=== PATIENT | female | born 1965 | race Caucasian/White ===

== ENCOUNTER 2020-03-25 07:18 | Outpatient (REF) | payer OTHER, SELFPAY ==
--- NOTE | 2020-03-25 07:21 | CT_ITS ---
EXAMINATION: CT HEAD WITHOUT CONTRAST CLINICAL INFORMATION: Amnesia COMPARISON: None. TECHNIQUE: Contiguous axial imaging was performed from the skull base to vertex without intravenous contrast. This CT examination was performed using dose optimization techniques as appropriate, variously including the following: * Automated exposure control * Adjustment of mA and/or kV according to patient size (this includes techniques or standardized protocols for targeted exams where dose is matched to indication/reason for exam; i.e. extremities or head) Use of iterative reconstruction technique DLP: 738 mGy-cm. FINDINGS: There is no evidence of acute intracranial hemorrhage or territorial infarction. No abnormal mass effect or midline shift is seen. Arellano to white matter differentiation is well preserved. No extra-axial fluid collections are identified. No hydrocephalus. No significant volume loss. There is no abnormal attenuation within the brain parenchyma. The osseous structures and soft tissues are normal. The mastoid air cells and visualized portions of the paranasal sinuses are well aerated. CT/CT head/brain wo con IMPRESSION: No acute intracranial pathology.
== END 2020-03-25 07:19 | disposition home or self-care (01) ==
LOC: HO.CT 07:18
PROVIDERS: PCP Internal Medicine; Visit Provider Internal Medicine
DX: R41.3 Other amnesia (principal)
CPT/HCPCS: 70450

== ENCOUNTER 2024-08-02 11:57 | Outpatient (AMB) | payer MEDICARE, MEDICAID, SELFPAY ==
--- NOTE | 2024-08-02 12:02 | AM.OFFWIN_ITS ---
Intake Vital Signs 08/02/24 12:03 Height 5 ft 1 in Weight 134 lb BMI 25.3 BP 116/66 Blood Pressure Location Lt brachial Position Sitting Respiration 15 Pulse 86 Pulse Source Pulse Oximeter Temp 98.1 F Temp Source Oral Pulse Oximetry (%) 100 Oxygen Delivery Method Room Air Intake Visit Reasons: Medication refill Intake Note: Pt is here today request refill for her rosuvastatin 5mg til she est care with PCP Allergies No Known Allergies Allergy (Verified 08/02/24 12:34) Medication List - Last Reconciled 08/02/24 by SHAD Garcia-WILFREDO acetaminophen ER (Tylenol Arthritis Pain) 650 mg PO Q12H calcium carbonate-vitamin D3 600 mg-5 mcg (200 unit) (Calcium 600 + D(3)) caps PO multivitamin 1 tab PO DAILY rosuvastatin 5 mg PO DAILY HPI HPI Comments History of Present Illness Details History - The patient is a 58-year-old female pr esenting with a need for medication refill due to a change between primary care providers. - She is currently taking rosuvastatin 5 mg every evening for hyperlipidemia without any reported side effects and is running low. - The patient has recently moved from [facility] to [place] and is temporarily residing in [place]. - She mentioned using [facility] and previously [facility] for her prescriptions but has not yet established a local pharmacy or seen a new primary care provider in the area. - Additionally, the patient takes folic acid, which she started based on prior recommendation and currently obtains over the counter. She has brought her medication bottle, 90 day supply written 04/2024. Physical Exam General: Awake, alert. No apparent distress Eyes: Sclera and conjunctiva clear bilaterally Speaking in full sentences Mood and affect appropriate Discussion Notes I discussed with the patient the need to refill her rosuvastatin prescription as she is running low on her current supply and is in transition between primary care providers. We reviewed the current arrangement of sending an electronic prescription to [facility] on [facility] in [place] with a paper copy provided to her as a backup. I explained that if she encounters any issues with insurance at [facility], she has the option to send the prescription to [facility]. I also advised that the prescription would cover a six-month supply to allow for continuity until she establishes care with a new primary provider. [facility]. Assessment and Plan 1. Hyperlipidemia: Continued management of hyperlipidemia with rosuvastatin 5 mg daily. Prescription refilled electronically with a backup paper copy for flexibility with pharmacy choice due to recent relocation. The six-month refill accounts for her transition period until she establishes care with a primary care provider. Patient Instructions - Take rosuvastatin 5 mg as prescribed, one tablet every evening. - Collect your prescription from the [facility] on [facility]. If there are any insurance issues, consider sending the prescription to [facility]. - Follow up with a new primary care prov ider as soon as possible to manage ongoing health needs. - Continue using folic acid as per your past regimen. Consent Patient was informed and verbally consented to the use of an ambient scribe for clinic note documentation during this visit. Total time spent caring for the patient today was [] minutes. This includes time spent before the visit reviewing the chart, time spent during the visit, and time spent after the visit on documentation, reviewing laboratory results, diagnostic imaging, medications, performing a medically necessary evaluation, counseling on diagnoses, care coordination, ordering appropriate tests, ordering appropriate medications, review of tests performed by other providers, reporting test results with the patient, communication with other healthcare providers. [facility] Medical History (Updated 08/02/24 @ 12:45 [facility] ADHD Anxiety and depression GERD (gastroesophageal reflux disease) Insomnia Osteoarthritis of foot Rheumatoid arthritis Surgical History (Updated 08/25/20 @ 09:13 by Maverick Deleon MD) History of bilateral breast reduction surgery History of bladder surgery History of elbow surgery History of hysterectomy Family History (Updated 04/22/20 @ 09:51 by Milagros Mcgrath) Father No problems noted. Mother No problems noted. Brother Myocardial infarction Social History (Updated 08/25/20 @ 09:08 by Magali Segovia CMA) Alcohol intake: current Alcohol intake frequency: holidays/special occasions only Physical Exam Vital Signs: Last Vital Signs Temp 98.1 F 08/02/24 12:03 Pulse 86 08/02/24 12:03 Resp 15 08/02/24 12:03 BP 116/66 08/02/24 12:03 Pulse Ox 100 08/02/24 12:03 Oxygen Delivery Method Room Air 08/02/24 12:03 BMI result Body Mass Index 25.3 Assessment & Plan Assessment & Plan (1) Hyperlipidemia: Code(s): E78.5 - Hyperlipidemia, unspecified Qualifiers: Hyperlipidemia type: mixed hyperlipidemia Qualified Code(s): E78.2 - Mixed hyperlipidemia Plan: . (2) Encounter for medication refill: Code(s): Z76.0 - Encounter for issue of repeat prescription Plan . Medications: New rosuvastatin 5 mg PO DAILY 90 tabs 1RF rosuvastatin 5 mg PO DAILY 90 tabs 1RF Patient Instructions: [address] [address] Patient Instructions - Take rosuvastatin 5 mg as prescribed, one tablet every evening. - Collect your prescription from the [facility] on [facility]. If there are any insurance issues, consider sending the prescription to [facility]. - Follow up with a new primary care provider as soon as possible to manage ongoing health needs. - Continue using folic acid as per your past regimen. Coding Level of Care Code Est Pt Level 3 (36003) Diagnoses Mixed hyperlipidemia E78.2 Hyperlipidemia type: mixed hyperlipidemia Encounter for medication refill Z76.0
[2024-08-02 12:03] VITALS: BP 116/66; PULSE 86; RESP 15; TEMP 36.7; O2SAT 100; BMI 25.3
== END 2024-08-02 12:54 | disposition home or self-care (01) ==
LOC: HO.HMCWIC 11:57
PROVIDERS: Visit Provider Nurse Practitioner Family
DX: E78.2 Mixed hyperlipidemia (principal); Z76.0 Encounter for issue of repeat prescription

== ENCOUNTER → 2024-08-02 11:57 | Outpatient (BNVA) | payer MEDICARE, MEDICAID, SELFPAY | PROVIDERS: Visit Provider Nurse Practitioner Family | DX: E78.2 Mixed hyperlipidemia (principal); Z76.0 Encounter for issue of repeat prescription | CPT/HCPCS: 99212 ==

== ENCOUNTER 2025-01-30 13:30 | Outpatient (AMB) | payer MEDICARE, MEDICAID, SELFPAY ==
[2025-01-30 13:36] VITALS: BP 142/80; PULSE 108; TEMP 36.5; O2SAT 98; BMI 24.8
--- NOTE | 2025-01-30 13:36 | A.OFFPC_ITS ---
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 Allergies No Known Allergies Allergy (Verified 01/30/25 13:48) Medication List - Last Reconciled 01/30/25 by Moni Brewster PA-C acetaminophen ER (Tylenol Arthritis Pain) 650 mg PO Q12H calcium carbonate-vitamin D3 600 mg-5 mcg (200 unit) (Calcium 600 + D(3)) caps PO multivitamin 1 tab PO DAILY rosuvastatin 5 mg PO DAILY Tobacco use date assessed: 01/30/25 Dental Screening Dental Screen Date: 01/30/25 Did you have a dental visit in the last 12 months?: Yes Did you have a dental problem in the last 6 months where you did not have access to dental care?: No Was dental information given to patient?: Patient has dentist HPI lawn specialist review of medication HPI Details 59-year-old female with past medical his tory of rheumatoid arthritis, GERD, ADHD, hyperlipidemia and anxiety and depression , to the office with the 1st time. Presenting for a wellness visit and management of chronic conditions. anxiety is managed without medication or counseling, previously used alprazolam. Hyperlipidemia Managed with rosuvastatin, refill sent to pharmacy. Rheumatoid Arthritis Joint pain in hips and fingers, managed with exercise and Tylenol, considering environmental protection specialist referral. mammogram: due and referral placed pap smear: she will call with sports psychologist preference colonoscopy: eye doctor: referral placed today COUNT INCLUDES THE [facility] Medical History Osteoarthritis of foot ADHD Rheumatoid arthritis Insomnia Anxiety and depression Surgical History History of bladder surgery History of hysterectomy History of bilateral breast reduction surgery History of elbow surgery Family History Father No problems noted. Mother No problems noted. Brother Myocardial infarction Social History Household Members Other:: Sister Housing: House Alcohol intake: current Alcohol intake frequency: holidays/special occasions only Patient Tobacco Use Status: Never used Tobacco e-Cigarette/Vaping Use: Never Used service: No Current occupational status: employed and disabled Cognitive needs: No Hearing needs: No Vision needs: Yes Female Reproductive History Menstrual History of abnormal pap smear: No Questionnaire PHQ-9 Over the last 2 weeks, how often have you been bothered by any of the following problems? 1. Little interest or pleasure in doing things: not at all 2. Feeling down, depressed, or hopeless: not at all 3. Trouble falling or staying asleep, or sleeping too much: not at all 4. Feeling tired or having little energy: not at all 5. Poor appetite or overeating: not at all 6. Feeling bad about yourself - or that you are a failure or have let yourself or your family down: not at all 7. Trouble concentrating on things, such as reading the newspaper or watching television: not at all 8. Moving or speaking so slowly that other people could have noticed. Or the opposite - being so fidgety or restless that you have been moving around a lot more than usual: not at all 9. Thoughts that you would be better off or of hurting yourself in some way: not at all Total score: 0 Depression Screening Interpretation: Negative Depression Screening Done: Yes 40511 - PHQ-9 Billing: Yes Source: Developed by Drs. Julio Sevilla, Kylie Alfred, Eugene Bearden and colleagues, with an educational maira from [employer]. Thrive Questionnaire Date Thrive assessed: 01/28/25 I am a: Patient What is your living situation today?: I have a steady place to live Within the past 12 months, did the food you bought not last and you didn't have the money to get more?: Never true Within the past 12 months, did you worry whether your food would run out before you got money to buy more?: Never true Do you have trouble paying for medicines?: No Do you have trouble getting transportation to medical appointments?: No Do you have trouble paying your heating and electricity bill?: No Do you have trouble taking care of your child, family member or friend?: No Do you have trouble with day-to-day activities such as bathing, preparing meals, shopping, managing finances, etc.?: No Are you currently unemployed and looking for a job?: No Are you interested in more education?: No Please select the resources that you would like help with: Transportation Currently or been in a relationship where the following occur: No concerns reported THRIVE Score: 0 AUDIT C Alcohol Use Questionnaire (AUDIT-C) 1. How often do you have a drink containing alcohol?: Monthly or less 2. How many drinks containing alcohol do you have on a typical day when you are drinking?: 1 or 2 3. How often do you have six or more drinks on one occasion?: Never Total Score: 1 MITCHEL-7 AMB Questionnaire MITCHEL-7 Date MITHCEL - 7 assessed: 01/30/25 Feeling nervous, anxious, or on edge: 0 = Not at all Not being able to stop or control worryin = Not at all Worrying too much about different things: 0 = Not at all Trouble relaxin = Not at all Being so restless that it is hard to sit still: 0 = Not at all Becoming easily annoyed or irritable: 0 = Not at all Feeling afraid as if something awful might happen: 0 = Not at all Total MITCHEL-7 score (0-4 normal; 5-9 mild; 10-14 moderate; 15-21 severe): 0 Source: Developed by Drs. Julio Sevilla, Kylie Alfred, Eugene Bearden and colleagues, with an educational maira from [employer]. MITCHEL-7 Assessment Billing MITCHEL-7 Assessment Tool: MITCHEL-7 Assessment 54626 Review of Systems Const Denies body aches, Denies chills, Denies fever(s), Denies headache(s) and Denies poor appetite Eyes Reports no additional complaints ENT Denies dysphagia, Denies dizziness, Denies headache(s) and Denies odynophagia Card Denies chest pain, Denies syncope, Denies edema, Denies irregular heart rhythm, Denies lightheadedness and Denies dyspnea Resp Denies cough and Denies dyspnea GI Denies abdominal pain, Denies constipation, Denies dysphagia, Denies diarrhea, Denies nausea, Denies odynophagia and Denies vomiting Reports no additional complaints Musc Reports no additional complaints and Denies abnormal gait Skin/Breast Reports system reviewed and no additional complaints, except as documented Neuro Denies abnormal gait, Denies dizziness, Denies syncope and Denies headache(s) Psych Reports no additional complaints Physical exam (Primary Care) Vital Signs: Last Vital Signs Temp 97.7 F 01/30/25 13:36 Pulse 108 H 01/30/25 13:36 BP 132/84 01/30/25 14:09 Pulse Ox 98 01/30/25 13:36 Oxygen Delivery Method Room Air 01/30/25 13:36 BMI result Body Mass Index 24.8 Tobacco/Smoking Status: Tobacco use Status Tobacco use date assessed 01/30/25 01/30/25 13:41 Patient Tobacco Use Status Never used Tobacco 01/30/25 13:41 e-Cigarette/Vaping Use Never Used 01/30/25 13:41 PHQ-9: PHQ-9 Score PHQ-9: Total score 0 01/30/25 13:41 Depression Screening Interpretation: Negative Thrive Assessment: Date of Thrive Assessment Date Thrive assessed 01/28/25 01/30/25 13:37 Currently or been in a relationship where the following occur: No concerns reported Const General: cooperative, healthy appearing, comfortable and no acute distress Orientation/consciousness: patient oriented x3 HENMT Head: Yes normocephalic Ears: hearing grossly normal bilaterally General nose exam: Normal external nose present Eyes General: appearance normal, both eyes and all related structures Conjunctivae: conjunctivae normal Neck Neck: Yes full ROM and Yes no lymphadenopathy Resp Effort & Inspection: normal respiratory effort Auscultation: clear to auscultation bilaterally, no crackles, no rales, no rhonchi and no wheezes Cardio Rate: regular rate Rhythm: regular rhythm Skin General skin exam: no rashes or lesions noted Neuro General: patient oriented x3 Gait exam (Neuro): Normal gait present Extrem General: Yes normal to inspection, Yes full ROM and No edema Psych Affect: normal affect Attitude: cooperative Insight: Good insight present (Psych) Judgement: Good judgement present (Psych) Coding Level of Care Code New Pt Level 4 (44635) Diagnoses Anxiety and depression F41.9; F32.9 Attention deficit hyperactivity disorder (ADHD), combined type F90.2 Attention deficit-hyperactivity disorder type: combined inattentive- hyperactive Mixed hyperlipidemia E78.2 Hyperlipidemia type: mixed hyperlipidemia Rheumatoid arthritis involving multiple sites, unspecified whether rheumatoid factor present M06.9 Rheumatoid arthritis location: multiple sites Rheumatoid factor presence: unspecified presence Wears glasses Z97.3 Additional Codes MITCHEL-7 Assessment Billing - MITCHEL-7 Assessment Tool: MITCHEL-7 Assessment 58100 ([id number]) PHQ-9 - 66144 - PHQ-9 Billing: Yes ([id number]) Assessment & Plan Assessment & Plan (1) Anxiety and depression: Code(s): F41.9 - Anxiety disorder, unspecified; F32.9 - Major depressive disorder, single episode, unspecified Category: Medical Plan: The patient is managing anxiety without medication or counseling, having discontinued alprazolam. No further intervention was discussed during this visit. (2) ADHD: Code(s): F90.9 - Attention-deficit hyperactivity disorder, unspecified type Category: Medical Qualifiers: Attention deficit-hyperactivity disorder type: combined inattentive- hyperactive Qualified Code(s): F90.2 - Attention-deficit hyperactivity disorder, combined type Plan: No acute concerns and not discussed at this visit. (3) Hyperlipidemia: Code(s): E78.5 - Hyperlipidemia, unspecified Category: Medical Qualifiers: Hyperlipidemia type: mixed hyperlipidemia Qualified Code(s): E78.2 - Mixed hyperlipidemia Plan: Avoid foods that are high in cholesterol such as red meat, fried foods, eggs and baked goods. Triglyceride goal of less than 150 and LDL goal of less than 130. Continue on Rosuvastatin. Ordered for updated blood work. (4) Rheumatoid arthritis: Comment: Dr. Eaton May 2011 Code(s): M06.9 - Rheumatoid arthritis, unspecified Category: Medical Qualifiers: Rheumatoid arthritis location: multiple sites Rheumatoid factor presence: unspecified presence Qualified Code(s): M06.9 - Rheumatoid arthritis, unspecified Plan: The patient experiences joint pain and manages it with exercise and Tylenol. A referral to a environmental protection specialist was considered but not decided upon during this visit. (5) Wears glasses: Code(s): Z97.3 - Presence of spectacles and contact lenses Category: Medical Plan: Referral placed to eye doctor today. Plan This note was constructed using voice recognition software. While every effort has been made to ensure accuracy and treasury representative, still areas may have been included sometimes these areas may affect the content or meeting of the given symptoms. Total time spent caring for the patient today was 30 minutes. This includes time spent before the visit reviewing the chart, time spent during the visit, and time spent after the visit and documentation. Patient was informed and verbally consented to the use of an ambient scribe for clinic note documentation during this visit. Orders: Orders TSH reflex Free T4 Today E78.2 - Mixed hyperlipidemia, Z13.29 - Encounter for screening for other suspected endocrine disorder Vitamin B12 and Folate Today E78.2 - Mixed hyperlipidemia, Z13.21 - Encounter for screening for nutritional disorder Vitamin D 25-OH Total Today E78.2 - Mixed hyperlipidemia, Z13.21 - Encounter for screening for nutritional disorder Comprehensive Met. Panel Today E78.2 - Mixed hyperlipidemia, Z00.00 - Encounter for general adult medical examination without abnormal findings Complete Blood Count Auto Diff Today E78.2 - Mixed hyperlipidemia, Z00.00 - Encounter for general adult medical examination without abnormal findings MM tomosynthesis screening BI Today Z12.31 - Encounter for screening mammogram for malignant neoplasm of breast Lipid Panel Today E78.00 - Pure hypercholesterolemia, unspecified Referrals Optometry Referral Z97.3 - Presence of spectacles and contact lenses Medications: Refilled rosuvastatin 5 mg PO DAILY 90 tabs 1RF rosuvastatin 5 mg PO DAILY 90 tabs 1RF
[2025-01-30 14:09] VITALS: BP 132/84
--- OUTSIDE RECORDS SUMMARY | 2025-01-30 14:49 | XMS_ITS | Patient Health Record ---
Author Organization [facility] Billing Info Address [address] [place] [address] [place] [address] Care Team Providers Care Virginia Line Attendant Name Role Phone MJ WOLF Primary Care Provider Allergies No Known Allergies Reason For Referral No Information Medications Medication SIG (Take, Route, Frequency, Duration) Notes Start Date End Date Status Lorazepam 0.5 MG 1 tablet at bedtime as needed Orally Once a day 08/15/2021 Active Orencia 125 MG/ML 1 ml Subcutaneous fo r 30 day(s) Active Calcium + D 315-200 MG-UNIT 1 tablet Orally Twice a day for 30 day(s) Active Claritin 10 MG 1 tablet Orally Once a day for 30 day(s) Active Meloxicam 15 MG 1 tablet Orally Once a day for 30 day(s) Active Immunizations Vaccine Route Administration Date Status Comme nts zFLU 4V (FLUARIX QUAD), 6 MO+, NO PRES - ALL PAYORS IM Intramuscular 02/10/2021 Administered ZOSTER (SHINGRIX) IM Intramuscular 02/10/2021 Administered ZOSTER (SHINGRIX) IM Intramuscular 05/17/2021 Administered Problems Problem Type SNOMED Code ICD Code Onset Dates Problem Status W/U Status Risk Notes Problem 63625657 Generalized anxiety disorder (F41.1) Active confirmed Reportedly well managed Problem 99472378 Rheumatoid arthritis, involving unspecified site, unspecified whether rheumatoid factor present (M06.9) Active confirmed Reportedly well managed Plan Of Treatment Pending Test Test Name Order Date MAMMO- 3D UNILATERAL DIAGNOSTIC LEFT MAURICIO AST ([id number]) 07/25/2021 Insurance Providers Payer Name Payer Address Payer Phone Subscriber Number Group Number Insured Name Patient Relationship to Insured Coverage Start Date Coverage End Date [facility] PR[facility] TO 05.07.2005 [address] [place], [place] [id number] Kathy George Self - patient is the insured 1 1 Medical (General) History Medical History History ICD Code rheumatoid arthritis- Dr. Spann colonoscopy - 2016 pap smear -2019 mammogram - 2019 Surgical History Surgery Date(Month/Year) 1996 partial hysterectomy- menorrhagia 2016 bladder lift 2020
== END 2025-01-30 14:13 | disposition home or self-care (01) ==
DX: M06.9 Rheumatoid arthritis, unspecified (principal); F41.9 Anxiety disorder, unspecified; F32.9 Major depressive disorder, single episode, unspecified; F90.2 Attention-deficit hyperactivity disorder, combined type; E78.2 Mixed hyperlipidemia; Z97.3 Presence of spectacles and contact lenses

== ENCOUNTER → 2025-01-30 13:30 | Outpatient (BNVA) | payer MEDICARE, MEDICAID, SELFPAY | DX: E78.2 Mixed hyperlipidemia (principal); F41.9 Anxiety disorder, unspecified; R06.9 Unspecified abnormalities of breathing; F32.9 Major depressive disorder, single episode, unspecified; F90.2 Attention-deficit hyperactivity disorder, combined type; M06.9 Rheumatoid arthritis, unspecified; Z79.899 Other long term (current) drug therapy | CPT/HCPCS: 96127; 99202 ==